=== PATIENT | male | born 1995 | race African-American/Black ===

== ENCOUNTER 2017-06-28 00:59 | Emergency (ER) | payer MEDICAID ==
[~2017-06-28] VITALS: Ht 172.7 cm; Wt 64.9 kg
[2017-06-28 01:21] VITALS: Ht 172.7 cm; Wt 64.9 kg
[2017-06-28 01:57] VITALS: BP 112/70
== END 2017-06-28 01:50 | disposition home or self-care (01) ==
LOC: ED 00:59
DX: K02.9 Dental caries, unspecified (principal)